=== PATIENT | female | born 1985 | race Caucasian/White ===

== ENCOUNTER 2023-07-13 02:24 | Emergency (ER) | payer OTHER, SELFPAY ==
[2023-07-13 02:26] VITALS: BP 107/67
--- NOTE | 2023-07-13 03:08 | ED.GENMED ---
History of Present Illness
<CALIXTO Alves - Last Filed: 07/13/23 05:50>
General
Chief Complaint: Abdominal Pain
Source: patient
Time Seen by Provider: 07/13/23 02:53
Nursing documentation reviewed up to this point in time: agreed with
Travel History
Have you had any contact with someone who has COVID-19?: No
Do you have any symptoms of coronavirus? Fever > 100 degrees, chills, cough, shortness of breath, sore throat, loss of taste or smell, muscle aches, or headache?: Yes
Symptoms:: chills cough
History of Present Illness
History of Present Illness:
38 y/o F with history of asthma presents to ED complaining of chills, dry cough, weakness, body aches, fatigue, sinus pressure, and headache x 3 days. She reports 1 episode of vomiting today that she states was liquid. She is also reporting right
sided abdominal pain x 2 hours. She states the pain shoots up to her shoulder at times. The pain is not worsened by movement/position. Patient reports the coughing is making her short of breath and makes her chest hurt. She reports feeling better on
, but then reports her symptoms started to worsen again. She reports they are continuing to worsen. She does state her 2 year was sick at daycare but unsure of what he had. Denies nausea, diarrhea, dizziness, chest pain or palpitations.
If applicable-neuro sx onset
Onset of symptoms known: Yes
Date of onset of symptoms: 07/09/23
Past History
<CALIXTO Alves - Last Filed: 07/13/23 05:50>
Past History
ED Past Medical History: Other (eating disorder )
ED Past Surgical History: Gynecological and Orthopedic
Social History
Tobacco: Non-smoker
Alcohol: Occasional
Drug: None
Living: with family
Employment: Employed
Review of Systems
<CALIXTO Alves - Last Filed: 07/13/23 05:50>
Review of Systems
Allergies reviewed?: Yes
All Other Systems: ROS reviewed and negative except as documented in HPI and ROS
Constitutional: Reports fatigue, night sweats and chills
EENT: Reports no symptoms
Respiratory: Reports cough and trouble breathing
Cardiac: Reports no symptoms
ABD/GI: Reports abdominal pain and vomiting
: Reports no symptoms
Musculoskeletal: Reports other (muscle weakness)
Skin: Reports no symptoms
Neurological: Reports headache
Endocrine: Reports no symptoms
Hematologic/Lymphatic: Reports no symptoms
Psychiatric: Reports no symptoms
Phy Exam
<ST LongSD - Last Filed: 07/13/23 05:50>
General Physical Exam
General Presentation: well appearing and moderate distress
General age: appears stated age
General Skin: warm and dry
General Habitus: normal
General Mental: alert
General Hydration: appears well hydrated
ENT Exam
ENT Exam: EOMI, TM's normal, pharynx normal and neck supple
Eye Exam
Eye Exam: PERRL and conjunctiva normal
Cardiovascular Exam
Cardiovascular Exam: regular rate/rhythm, no edema, no gallop, no murmur and normal peripheral pulses
Pulmonary Exam
Pulmonary Exam: lungs clear, no respiratory distress, no rales, no crackles and no rhonchi
Gastrointestinal Exam
Gastrointestinal Exam: normal bowel sounds and tender (tender diffusely throughout abdomen )
Neurological Exam
Neurological Exam: alert and oriented x3
Musculoskeletal Exam
Musculoskeletal Exam: neuro vasc intact
Skin Exam
Skin Exam: normal color, warm/dry and no rash
Psychiatric Exam
Psychiatric Exam: normal mood/affect
Course
<ST LongSD - Last Filed: 07/13/23 05:50>
Orders/Labs/Results
Orders:
Orders
07/13/23 03:25
0.9% Sodium Chloride 1000 ml [Nss] 1,000 ml IV BOLUS
Test Result ONCE
07/13/23 03:29
Influenza A+B Rapid Molecular Urgent
[facility] Source: Nasal Swab
Specimen Description:
07/13/23 03:39
Complete Blood Count/With Diff Urgent
Comprehensive Metabolic Panel Urgent
HCG, Serum Qualitative Screen Urgent
07/13/23 04:56
Ipratropium/Albuterol Sulfate [Duoneb] 3 ml INH R NOW ONE
07/13/23 05:00
Acetaminophen [Tylenol] 1,000 mg PO NOW STA
07/13/23 06:06
Ibuprofen [Motrin] 600 mg PO NOW STA
Abnormal Lab Results
07/13/23
03:39
MPV 11.3 H fL
(7.4-10.4)
Absolute Lymphs (auto) 0.5 L 10^3/uL
(1.2-3.4)
Neutrophils % 85.9 H %
(42.2-75.2)
Lymphocytes % 6.3 L %
(20.5-51.1)
Carbon Dioxide 21 L mmol/L
(22-30)
Glucose 113 H mg/dl
(70-99)
07/13/23 03:39
07/13/23 03:39
Vital Signs
Initial and Last Documented VS:
Initial Vital Signs
Temp Pulse Resp BP Pulse Ox
100.9 F H 105 24 107/67 97
07/13/23 02:26 07/13/23 02:26 07/13/23 02:26 07/13/23 02:26 07/13/23 02:26
Last Documented Vital Signs
Temp Pulse Resp BP Pulse Ox
99.2 F 98 16 105/68 97
07/13/23 05:00 07/13/23 05:00 07/13/23 05:00 07/13/23 05:00 07/13/23 05:00
<Suhas Wolf, DO - Last Filed: 07/13/23 06:19>
Orders/Labs/Results
Orders:
Orders
07/13/23 03:25
0.9% Sodium Chloride 1000 ml [Nss] 1,000 ml IV BOLUS
Test Result ONCE
07/13/23 03:29
Influenza A+B Rapid Molecular Urgent
[facility] Source: Nasal Swab
Specimen Description:
07/13/23 03:39
Complete Blood Count/With Diff Urgent
Comprehensive Metabolic Panel Urgent
HCG, Serum Qualitative Screen Urgent
07/13/23 04:56
Ipratropium/Albuterol Sulfate [Duoneb] 3 ml INH R NOW ONE
07/13/23 05:00
Acetaminophen [Tylenol] 1,000 mg PO NOW STA
07/13/23 06:06
Ibuprofen [Motrin] 600 mg PO NOW STA
Abnormal Lab Results
07/13/23
03:39
MPV 11.3 H fL
(7.4-10.4)
Absolute Lymphs (auto) 0.5 L 10^3/uL
(1.2-3.4)
Neutrophils % 85.9 H %
(42.2-75.2)
Lymphocytes % 6.3 L %
(20.5-51.1)
Carbon Dioxide 21 L mmol/L
(22-30)
Glucose 113 H mg/dl
(70-99)
07/13/23 03:39
07/13/23 03:39
Vital Signs
Initial and Last Documented VS:
Initial Vital Signs
Temp Pulse Resp BP Pulse Ox
100.9 F H 105 24 107/67 97
07/13/23 02:26 07/13/23 02:26 07/13/23 02:26 07/13/23 02:26 07/13/23 02:26
Last Documented Vital Signs
Temp Pulse Resp BP Pulse Ox
99.2 F 98 16 105/68 97
07/13/23 05:00 07/13/23 05:00 07/13/23 05:00 07/13/23 05:00 07/13/23 05:00
<CALIXTO Alves - Last Filed: 07/13/23 05:50>
MDM/Problems Addressed
Differential Diagnosis Includes:
Flu
Cough
Viral
Gastroenteritis
COVID (negative at home)
MDM/Problems Addressed:
Patient positive for Flu. Given Tylenol 1000mg and albuterol in ED for cough. Patient is feeling better with albuterol. Will discharge home with prescription for Albuterol.
<CALIXTO Alves - Last Filed: 07/13/23 05:50>
*Critical Care Note
Total Time (30-74mins, 75-104mins- exclusive of procedures): Not Applicable
<CALIXOT Alves - Last Filed: 07/13/23 05:50>
Update Note
Update Note:
0431: Patient condition unchanged on IV fluids. Positive for flu.
0538: Patient cough better after Albuterol treatment. Given Tylenol 1000mg 0515.
ED Attending Note
<CALIXTO Alves - Last Filed: 07/13/23 05:50>
-
Portions of this chart may have been created with voice recognition software.� Occasional wrong word or��sound alike� substitutions may have occurred due to the inherent limitations of voice recognition software.
<Suhas Wolf DO - Last Filed: 07/13/23 06:19>
ED Attending Note
Patient seen and examined by attending physician: Yes
I performed the substantive portion of visit, reviewed & personally made and approve the management plan that is documented in note by myself or SUSANNA.: Yes
ED Attending Note:
Pleasant 38-year-old female presents with bodyaches, cough, weakness, sinus pressure for the last 3 days. She did have 1 episode of vomiting. Patient reports nonproductive cough. Patient states that her symptoms have waxed and waned. She does
have sick contact in her 2-year-old who had a similar illness that he acquired from daycare. Patient does have a history of asthma. Denies any other medical issues. Patient was seen in conjunction with the PA student. I have reviewed and agree
with the history and treatment plan presented. On my independent physical exam, patient is awake, alert, and oriented x3, minimal to moderate acute distress. Nonproductive cough heard. Lungs are slightly diminished diffusely with wheezing heard
in all lung miller. Patient is a influenza positive. Give her breathing treatment
Discharge Plan
Departure
Patient Disposition: Home (Routine Discharge)
Date of Disposition: 07/13/23
Time of Disposition: 06:00
Patient with high blood pressure during this ER visit?: No
Condition: Good
Discharge Problem:
Influenza A
Instructions: Flu, Adult (DC)
Prescriptions:
New
albuterol sulfate [ProAir HFA] 90 mcg/actuation HFA aerosol inhaler
1 puff inhalation Q4HPRN PRN (Reason: shortness of breath) Qty: 8.5 0RF
Referrals:
Leanne Miranda MD [Family Provider] -
Activity Restrictions/Additional Instructions:
It was a pleasure meeting you and taking part in your care. We hope for your continued healing and wellness.
Please read discharge instructions in their entirety. However, they are for general education and may not describe your exact diagnosis at discharge. Information on your ER visit and medical conditions were discussed with you along with appropriate
follow up information...
If indicated, please take your medications as instructed and indicated on discharge paperwork.
Please schedule a follow up appointment as directed. Call to schedule an appointment
Please return to the emergency department with ANY change in, persisting, or worsening of symptoms. If any of your symptoms do not improve, or persist, or become more severe within 6-12 hours, please return to the emergency department for further
care.
Please return to the emergency department if you develop a headache, neck pain/stiffness, fever greater than 100.4F, chest pain, shortness of breath, persistent nausea, vomiting, slurred speech, difficulty walking, numbness/tingling, weakness, signs
of infection or any other symptoms that are worrisome to you.
If you have any questions or concerns please do not hesitate to call the Hospital at or E-mail me directly at [email or web address]
Interventions
Interventions:
*Risk Screen - Suicide Last Done: 07/13/23 02:26
*General Assessment Last Done: 07/13/23 02:26
*Neglect/Abuse Screening Last Done: 07/13/23 02:26
ED- Fall Risk Assessment Last Done: 07/13/23 02:26
*ED COVID-19 Vaccine History Last Done: 07/13/23 02:26
YN-[id number]-[id number] Assessment Last Done: 07/13/23 03:49
[2023-07-13 03:37] VITALS: BMI 19.8
[2023-07-13] MEDS: NSS 1000 IV (03:45)
[2023-07-13 03:50] VITALS: BP 110/67
[2023-07-13 04:10] LABS: % Basophils 0.1 % (0-2); % Immature Granulocytes 0.4 % (0-0.5); % Lymphocytes 6.3 % (20.5-51.1); % Monocytes 7.3 % (1.7-9.3); % Neutrophils 85.9 % (42.2-75.2); Absolute Lymphocytes 0.5 10^3/uL (1.2-3.4); Absolute Monocytes 0.5 10^3/uL (0.1-0.6); Absolute Neutrophils 6.3 10^3/uL (1.4-6.5); Hematocrit 41.4 % (37.0-47.0); Hemoglobin 14.1 g/dL (12.0-16.0); Mean Corp Hgb Conc. 34.1 g/dL (33.0-37.0); Mean Platelet Volume 11.3 fL (7.4-10.4); Nucleated Red Blood Cells % 0 %; Platelet Count 143 10^3/uL (130-400); Red Blood Cell Count 4.55 10^6/uL (4.20-5.40); Red Cell Dist. Width 12.2 % (11.5-14.5); White Blood Cell Count 7.3 10^3/uL (4.8-10.8)
[2023-07-13 04:21] LABS: HCG, Serum Qualitative Screen Negative
[2023-07-13 04:22] LABS: ALT (SGPT) 18 U/L (0-35); AST (SGOT) 29 U/L (14-36); Albumin 4.4 g/dl (3.5-5.0); Alkaline Phosphatase 54 U/L (38-126); Blood Urea Nitrogen 7 mg/dl (7-17); Calcium 8.9 mg/dl (8.4-10.2); Carbon Dioxide 21 mmol/L (22-30); Chloride 107 mmol/L (98-107); Estimated Creatinine Clearance 100 ml/min; Glucose 113 mg/dl (70-99); Potassium 4.4 mmol/L (3.5-5.1); Sodium 136 mmol/L (135-145); Total Bilirubin 1.3 mg/dl (0.2-1.3); Total Protein 6.8 g/dl (6.3-8.2); eGFR > 60.00
[2023-07-13 05:00] VITALS: BP 105/68
[2023-07-13] MEDS: DUONEB 3 ML INH (05:00)
[2023-07-13] MEDS: TYLENOL 1000 MG PO (05:12)
[2023-07-13] MEDS: MOTRIN 600 MG PO (06:23)
== END 2023-07-13 06:29 | disposition home or self-care (01) ==
LOC: EMR 02:24
PROVIDERS: EMERGENCY PHYSICIAN Student in an Organized Health Care Education/Training Program; FAMILY PHYSICIAN Internal Medicine
DX: J10.1 Influenza due to other identified influenza virus with other respiratory manifestations (principal); J45.909 Unspecified asthma, uncomplicated
CPT/HCPCS: 99284; 96360; 94640; 80053; 84703; 85025; 87502

== ENCOUNTER → 2023-08-05 15:38 | Outpatient (REF) | payer OTHER, SELFPAY | LOC: HWRAD 15:38 | PROVIDERS: ATTENDING PHYSICIAN Physician Assistant Medical | DX: J45.21 Mild intermittent asthma with (acute) exacerbation (principal) | CPT/HCPCS: 71046 ==

== ENCOUNTER → 2023-12-10 12:13 | Outpatient (REF) | payer OTHER, SELFPAY | LOC: RAD 12:13 | PROVIDERS: ATTENDING PHYSICIAN Internal Medicine | DX: J45.21 Mild intermittent asthma with (acute) exacerbation (principal) | CPT/HCPCS: 71046 ==